=== PATIENT | female | born 1975 | race Caucasian/White ===

== ENCOUNTER 2023-10-28 12:37 | Emergency (ER) | payer BC, MEDICAID ==
[~2023-10-28] VITALS: Ht 167.6 cm; Wt 81.8 kg
[~2023-10-28 12:37] MED LIST: PERCT PO; UNK HTN MED PO
[2023-10-28] MEDS ORDERED: LOSA1TAB42 PO (12:42)
[2023-10-28 12:43] VITALS: TEMP 97.9
[2023-10-28] MEDS ORDERED: METHOCARBAMOL 500 MG TABLET PO ONE (13:15)
[2023-10-28] MEDS ORDERED: TraMADol HCL 50 MG TABLET PO ONE (13:15)
[2023-10-28] MEDS ORDERED: KETOROLAC TROMETHAMINE 60 MG/2 ML VIAL IM ONE (13:15)
[2023-10-28] MEDS ORDERED: BACL10TA PO (13:42)
[2023-10-28] MEDS ORDERED: IBUP-1554 PO (13:42)
[2023-10-28] MEDS ORDERED: TRAM-559 PO (13:49)
[2023-10-28 13:51] VITALS: BP 138/94; PULSE 67; RESP 16
== END 2023-10-28 14:31 | disposition home or self-care (01) ==
LOC: EMS 13:29
DX: M54.9 Dorsalgia, unspecified (principal); I10 Essential (primary) hypertension; F17.210 Nicotine dependence, cigarettes, uncomplicated; Z90.49 Acquired absence of other specified parts of digestive tract
CPT/HCPCS: 99283; 96372; J1885

== ENCOUNTER 2024-07-20 10:28 | Emergency (ER) | payer SELFPAY ==
[~2024-07-20] VITALS: Ht 167.6 cm; Wt 77.3 kg
[~2024-07-20 10:28] MED LIST changes: +BACL10TA PO; +IBUP-1554 PO; +LOSA1TAB42 PO; -PERCT PO; +TRAM50TA5 PO; -UNK HTN MED PO
[2024-07-20 10:32] VITALS: BP 118/79; PULSE 82; RESP 18; TEMP 98.2; O2SAT 99
[2024-07-20] MEDS ORDERED: ACET-3385 PO (11:26)
[2024-07-20] MEDS ORDERED: IBUP-1492 PO (11:26)
[2024-07-20] MEDS ORDERED: LIDO700A15 TP (11:26)
[2024-07-20] MEDS: ACETAMINOPHEN 500 MG TABLET PO ONE (11:31)
[2024-07-20] MEDS: KETOROLAC TROMETHAMINE 30 MG/ML VIAL IM ONE (11:31)
[2024-07-20] MEDS: LIDOCAINE 5% TRANSDERMAL PATCH TD ONE (11:31)
== END 2024-07-20 11:45 | disposition home or self-care (01) ==
LOC: EMS 10:28
DX: M54.50 Low back pain, unspecified (principal); I10 Essential (primary) hypertension; F17.210 Nicotine dependence, cigarettes, uncomplicated; Z90.49 Acquired absence of other specified parts of digestive tract
CPT/HCPCS: 99283; 96372; J1885